=== PATIENT | female | born 1940 | race Two or more races ===

== ENCOUNTER → 2018-09-19 | Outpatient (CLI) | payer MEDICARE, MEDICAID ==
[~2018-09-19] MED LIST: ALBUPOW26; AMLO10TA12; LISI-713; SIMV40TA96; [UNRECOGNIZED DRUG - OTHER]
[2018-09-19 12:01] LABS: Urine WBC None Seen /hpf (0 - 5)
[2018-09-19 12:19] LABS: Basophils # (auto) 0 uL; Basophils % (auto) 0.5 % (0.0-2.0); Eosinophils # (auto) 0 uL; Eosinophils % (auto) 0.6 % (0.0-7.0); Hematocrit 42.2 % (36.0-46.0); Hemoglobin 13.9 g/dL (12.2-16.2); Lymphocytes # (auto) 1.4 uL; Lymphocytes % (auto) 22.5 % (10.0-50.0); Mean Corpuscular Hemoglobin 27.5 pg (28.0-32.0); Mean Corpuscular Volume 83.4 fL (80.0-100.0); Monocytes # (auto) 0.5 uL; Monocytes % (auto) 8.5 % (0.0-12.0); Neutrophils # (auto) 4.2 uL; Neutrophils % (auto) 67.9 % (37.0-80.0); Platelet Count (auto) 332 10^3/uL (140-450); Red Blood Cells 5.06 10^6/uL (4.0-5.20); Red Cell Distribution Width 13.1 % (11.8-14.3); White Blood Cell 6.2 10^3/uL (4.4-10.8)
[2018-09-19 12:23] LABS: Urine Bacteria NONE SEEN /hpf (None Seen); Urine Blood Negative /uL (Negative); Urine Specific Gravity 1.007 (1.001-1.035)
[2018-09-19 12:34] LABS: INR 0.96 (0.9-1.15); Partial Thromboplastin Time 26.1 sec (23.78-33.04); Prothrombin Time 10.3 sec (9.27-12.13)
[2018-09-19 13:09] LABS: Albumin 3.7 g/dL (3.4-5.0); Calcium 8.9 mg/dL (8.5-10.1); Potassium 3.6 mmol/L (3.5-5.1)
[2018-09-19 13:12] LABS: BUN/Creatinine Ratio 26.8; Bilirubin, Total 0.4 mg/dL (0.2-1.0); Total Protein 7.4 g/dL (6.4-8.2)
== END | disposition home or self-care (01) ==
LOC: LAB 10:58
PROVIDERS: ATTEND Orthopaedic Surgery
DX: M75.121 Complete rotator cuff tear or rupture of right shoulder, not specified as traumatic (principal); M75.41 Impingement syndrome of right shoulder; M75.21 Bicipital tendinitis, right shoulder; M80.021A Age-related osteoporosis with current pathological fracture, right humerus, initial encounter for fracture; Z79.01 Long term (current) use of anticoagulants; Z79.899 Other long term (current) drug therapy
CPT/HCPCS: 36415; 80053; 81001; 83036; 85025; 85610; 85730

== ENCOUNTER 2021-06-09 16:51 | Emergency (ER) | payer MEDICARE, MEDICAID ==
[~2021-06-09] VITALS: Ht 152.4 cm; Wt 75.3 kg
[~2021-06-09 16:51] MED LIST changes: +AMLO-496; -AMLO10TA12; +SIMV40TA2; -SIMV40TA96
[2021-06-09 17:02] VITALS: BP 149/74
[2021-06-09 18:38] LABS: Basophils # (auto) 0 10 ^3/uL (0-0.2); Basophils % (auto) 0.4 % (0.0-2.0); Eosinophils # (auto) 0.1 10 ^3/uL (0-0.8); Eosinophils % (auto) 1.2 % (0.0-7.0); Hematocrit 37.3 % (36.0-46.0); Hemoglobin 12.1 g/dL (12.2-16.2); Lymphocytes # (auto) 1.6 10 ^3/uL (0.4-5.4); Lymphocytes % (auto) 22.4 % (10.0-50.0); Mean Corpuscular Hemoglobin 25.5 pg (28.0-32.0); Mean Corpuscular Hgb Conc. 32.3 g/dL (32.0-36.0); Mean Corpuscular Volume 78.8 fL (80.0-100.0); Monocytes # (auto) 0.7 10 ^3/uL (0-1.3); Monocytes % (auto) 9.4 % (0.0-12.0); Neutrophils # (auto) 4.8 10 ^3/uL (1.6-8.6); Neutrophils % (auto) 66.6 % (37.0-80.0); Red Blood Cells 4.74 10^6/uL (4.0-5.20); Red Cell Distribution Width 16.2 % (11.8-14.3); White Blood Cell 7.2 10^3/uL (4.4-10.8)
[2021-06-09 18:52] LABS: Alanine Aminotransferase 17 U/L (13-56); Albumin 3.7 g/dL (3.4-5.0); Anion Gap 8 (5-15); Aspartate Aminotransferase 12 U/L (15-37); BUN/Creatinine Ratio 33.9; Blood Urea Nitrogen 21 mg/dL (7-18); Calcium 8.7 mg/dL (8.5-10.1); Carbon Dioxide 24 mmol/L (21-32); Chloride 105 mmol/L (98-107); GFR African American 119 mL/min; GFR Non-African American 99 mL/min; Glucose 97 mg/dL (74-106); Potassium 4.3 mmol/L (3.5-5.1); Sodium 137 mmol/L (136-145)
[2021-06-09 18:57] LABS: Alkaline Phosphatase 139 U/L (45-117); Bilirubin, Total 0.4 mg/dL (0.2-1.0)
== END 2021-06-09 18:40 | disposition left against medical advice (07) ==
LOC: ER 16:51
DX: R07.9 Chest pain, unspecified (principal); Z53.21 Procedure and treatment not carried out due to patient leaving prior to being seen by health care provider
CPT/HCPCS: 36415; 71045; 80053; 84484; 85025; 93005

== ENCOUNTER 2022-12-10 01:02 | Inpatient (IN) | payer MEDICARE, MEDICAID ==
[~2022-12-10] VITALS: Ht 165.1 cm; Wt 76.4 kg
[2022-12-10] MEDS ORDERED: methylPREDNISolone SOD SUCC 125 MG/2 ML VL ONE (01:05)
[2022-12-10] MEDS ORDERED: FUROSEMIDE 40 MG/4 ML VIAL ONE (01:05)
[2022-12-10] MEDS ORDERED: ALBUTEROL SULF 2.5 MG/0.5ML(0.5%) NEB SOLN NEB ONE (01:15)
[2022-12-10] MEDS ORDERED: methylPREDNISolone SOD SUCC 125 MG/2 ML VL IV ONE (01:15)
[2022-12-10] MEDS ORDERED: methylPREDNISolone SOD SUCC 125 MG/2 ML VL IM ONE (01:15)
[2022-12-10] MEDS ORDERED: FUROSEMIDE 40 MG/4 ML VIAL IV ONE (01:15)
[2022-12-10] MEDS ORDERED: IPRATROPIUM BROM 0.5 MG/2.5ML INH SOL NEB ONE (01:15)
[2022-12-10] MEDS ORDERED: ALBUTEROL MEDNEB 2.5 mg/3ml NEB ONE ×3 (01:26→14:06)
[2022-12-10 01:57] LABS: Basophils # (auto) 0 10 ^3/uL (0-0.2); Basophils % (auto) 0.6 % (0.0-2.0); Eosinophils # (auto) 0.2 10 ^3/uL (0-0.8); Eosinophils % (auto) 2.5 % (0.0-7.0); Hematocrit 33.7 % (36.0-46.0); Lymphocytes # (auto) 2.9 10 ^3/uL (0.4-5.4); Lymphocytes % (auto) 34.3 % (10.0-50.0); Mean Corpuscular Hemoglobin 28.3 pg (28.0-32.0); Mean Corpuscular Hgb Conc. 32.6 g/dL (32.0-36.0); Mean Corpuscular Volume 86.8 fL (80.0-100.0); Monocytes # (auto) 0.8 10 ^3/uL (0-1.3); Monocytes % (auto) 9.3 % (0.0-12.0); Neutrophils # (auto) 4.5 10 ^3/uL (1.6-8.6); Neutrophils % (auto) 53.3 % (37.0-80.0); Nucleated Red Blood Cells % 0.2 %; Red Blood Cells 3.89 10^6/uL (4.0-5.20); Red Cell Distribution Width 15.5 % (11.8-14.3); White Blood Cell 8.3 10^3/uL (4.4-10.8)
[2022-12-10 02:10] LABS: Albumin 3.5 g/dL (3.4-5.0); Calcium 8.8 mg/dL (8.5-10.1); Potassium 4.3 mmol/L (3.5-5.1)
[2022-12-10 02:11] LABS: BUN/Creatinine Ratio 21.2
[2022-12-10 02:13] LABS: Partial Thromboplastin Time 23.1 sec (24.6-33.4)
[2022-12-10 02:14] LABS: Bilirubin, Total 0.3 mg/dL (0.2-1.0); Total Protein 7.2 g/dL (6.4-8.2)
[2022-12-10 04:18] VITALS: BP 118/37
[2022-12-10] MEDS ORDERED: ACETAMINOPHEN 325 MG TAB PO PRN (09:45)
[2022-12-10] MEDS ORDERED: PANTOPRAZOLE 40 MG/10 ML VIAL INJ IV ONE (09:45)
[2022-12-10] MEDS ORDERED: DEXTROSE (50%) 50ML SYRG IV PRN (10:00)
[2022-12-10] MEDS ORDERED: IPRATROPIUM BROM 0.5 MG/2.5ML INH SOL NEB SCH (10:00)
[2022-12-10] MEDS: FUROSEMIDE 20 MG/2 ML VIAL IV SCH (10:00)
[2022-12-10] MEDS ORDERED: ALBUTEROL SULF 2.5 MG/0.5ML(0.5%) NEB SOLN NEB SCH (10:00)
[2022-12-10 10:14] LABS: Cholesterol 169 mg/dL (< 200); Triglycerides 123 mg/dL (< 150)
[2022-12-10 10:16] LABS: HDL Cholesterol 79 mg/dL (40-59); LDL Cholesterol 78 mg/dL (< 100)
[2022-12-10] MEDS: ENOXAPARIN SOD 40 MG/0.4 ML SYRINGE SC SCH (11:22)
[2022-12-10] MEDS: methylPREDNISolone SOD SUCC 125 MG/2 ML VL IV SCH ×2 (11:26→22:52)
[2022-12-10] MEDS: PANTOPRAZOLE 40 MG/10 ML VIAL INJ IV SCH (11:28)
[2022-12-10] MEDS: InsuLIN REG 1unit/0.01ml Soln (100units/ml) SC SCH ×3 (11:30→22:53)
[2022-12-10] MEDS: IPRATROPIUM BROM 0.5 MG/2.5ML INH SOL NEB SCH (18:14)
[2022-12-10] MEDS: ALBUTEROL SULF 2.5 MG/0.5ML(0.5%) NEB SOLN NEB SCH (18:14)
[2022-12-10] MEDS: ACCU-CHEK COMFORT CURVE STRIP VI SCH ×3 (19:17→22:00)
[2022-12-10] MEDS ORDERED: LORazepam 2MG/ML-1ML VIAL ONE (23:26)
[2022-12-10 23:29] VITALS: BP 141/69
[2022-12-10] MEDS ORDERED: methylPREDNISolone SOD SUCC 40 MG/ML VL ONE (23:29)
[2022-12-11] VITALS (7 sets, daily range): BP systolic 113–145; BP diastolic 45–68
[2022-12-11] MEDS ORDERED: dilTIAZem 25 MG/5 ML VIAL IV ONE
[2022-12-11] MEDS: IPRATROPIUM BROM 0.5 MG/2.5ML INH SOL NEB SCH ×4 (00:01→19:13)
[2022-12-11] MEDS: ALBUTEROL SULF 2.5 MG/0.5ML(0.5%) NEB SOLN NEB SCH ×3 (00:01→12:41)
[2022-12-11] MEDS ORDERED: dilTIAZem HCL 50 MG/10 ML VIAL IV ONE (00:06)
[2022-12-11] MEDS ORDERED: LORazepam 2MG/ML-1ML VIAL IV PRN (00:30)
[2022-12-11] MEDS ORDERED: LORazepam 2MG/ML-1ML VIAL IM ONE (00:30)
[2022-12-11] MEDS ORDERED: methylPREDNISolone SOD SUCC 40 MG/ML VL IV ONE (00:30)
[2022-12-11] MEDS: InsuLIN REG 1unit/0.01ml Soln (100units/ml) SC SCH ×4 (06:37→22:11)
[2022-12-11] MEDS: ACCU-CHEK COMFORT CURVE STRIP VI SCH ×4 (06:38→22:08)
[2022-12-11] MEDS: CARVEDILOL 12.5 MG TAB PO SCH ×3 (09:08→22:08)
[2022-12-11] MEDS: methylPREDNISolone SOD SUCC 125 MG/2 ML VL IV SCH ×2 (09:33→14:06)
[2022-12-11] MEDS: FUROSEMIDE 20 MG/2 ML VIAL IV SCH (09:33)
[2022-12-11] MEDS: PANTOPRAZOLE 40 MG/10 ML VIAL INJ IV SCH (09:33)
[2022-12-11] MEDS: ENOXAPARIN SOD 40 MG/0.4 ML SYRINGE SC SCH (09:35)
[2022-12-11 10:32] LABS: Hematocrit 29.6 % (36.0-46.0); Hemoglobin 9.9 g/dL (12.2-16.2); Mean Corpuscular Hemoglobin 28.5 pg (28.0-32.0); Mean Corpuscular Hgb Conc. 33.3 g/dL (32.0-36.0); Mean Corpuscular Volume 85.5 fL (80.0-100.0); Red Blood Cells 3.46 10^6/uL (4.0-5.20); Red Cell Distribution Width 15.5 % (11.8-14.3); White Blood Cell 10.6 10^3/uL (4.4-10.8)
[2022-12-11 10:36] LABS: Band Neutrophils % (manual) 0; Basophils % (manual) 0 (0.0-2.0); Blast Cells 0; Eosinophils % (manual) 0 (0-7); Metamyelocytes % 0; Myelocytes % 0; Promyelocytes % 0; Reactive Lymphocytes 0
[2022-12-11] MEDS ORDERED: FURO40TA4 PO (10:47)
[2022-12-11] MEDS ORDERED: ALBUAER3 IN (10:48)
[2022-12-11] MEDS ORDERED: IRBE300T43 PO (10:49)
[2022-12-11 10:50] LABS: Albumin 3.4 g/dL (3.4-5.0); BUN/Creatinine Ratio 31.7; Calcium 8.7 mg/dL (8.5-10.1); Potassium 4.6 mmol/L (3.5-5.1)
[2022-12-11] MEDS ORDERED: METF-370 PO (10:50)
[2022-12-11] MEDS ORDERED: FESO4TAB PO (10:50)
[2022-12-11] MEDS ORDERED: NEBI10TA2 PO (10:51)
[2022-12-11] MEDS ORDERED: ASPI325T4 PO (10:53)
[2022-12-11 10:54] LABS: Bilirubin, Total 0.3 mg/dL (0.2-1.0); Total Protein 6.3 g/dL (6.4-8.2)
[2022-12-11] MEDS ORDERED: ACET-1156 PO (10:55)
[2022-12-11 11:28] LABS: Lymphocytes % (manual) 5 (10.0-50.0); Monocytes % (manual) 4 (0-12)
[2022-12-11] MEDS ORDERED: LOSARTAN POTASSIUM 25 MG TAB PO ONE (16:15)
[2022-12-11] MEDS ORDERED: FUROSEMIDE 40 MG/4 ML VIAL IV ONE (16:15)
[2022-12-11] MEDS: FUROSEMIDE 40 MG/4 ML VIAL IV SCH (17:05)
[2022-12-11] MEDS: ALBUTEROL SULF 2.5 MG/0.5ML(0.5%) NEB SOLN NEB PRN (19:13)
[2022-12-11] MEDS ORDERED: ALBUTEROL SULF 2.5 MG/0.5ML(0.5%) NEB SOLN ONE (23:58)
[2022-12-12] MEDS: ALBUTEROL SULF 2.5 MG/0.5ML(0.5%) NEB SOLN NEB PRN ×2 (00:18→18:55)
[2022-12-12] MEDS: IPRATROPIUM BROM 0.5 MG/2.5ML INH SOL NEB SCH ×4 (00:18→18:55)
[2022-12-12 05:00] VITALS: BP 132/48
[2022-12-12 06:24] LABS: Basophils # (auto) 0 10 ^3/uL (0-0.2); Eosinophils # (auto) 0 10 ^3/uL (0-0.8); Hematocrit 26.5 % (36.0-46.0); Lymphocytes # (auto) 0.6 10 ^3/uL (0.4-5.4); Lymphocytes % (auto) 7.4 % (10.0-50.0); Mean Corpuscular Hgb Conc. 33.9 g/dL (32.0-36.0); Mean Corpuscular Volume 85.6 fL (80.0-100.0); Monocytes # (auto) 0.4 10 ^3/uL (0-1.3); Monocytes % (auto) 4.5 % (0.0-12.0); Neutrophils # (auto) 7.5 10 ^3/uL (1.6-8.6); Neutrophils % (auto) 88.1 % (37.0-80.0); Nucleated Red Blood Cells % 0.1 %; Red Blood Cells 3.09 10^6/uL (4.0-5.20); White Blood Cell 8.5 10^3/uL (4.4-10.8)
[2022-12-12] MEDS: ACCU-CHEK COMFORT CURVE STRIP VI SCH ×4 (06:36→21:33)
[2022-12-12] MEDS: InsuLIN REG 1unit/0.01ml Soln (100units/ml) SC SCH ×4 (06:38→21:33)
[2022-12-12 07:09] LABS: Albumin 3.2 g/dL (3.4-5.0); BUN/Creatinine Ratio 49.5; Bilirubin, Total 0.3 mg/dL (0.2-1.0); Calcium 8.5 mg/dL (8.5-10.1); Potassium 4.5 mmol/L (3.5-5.1); Total Protein 6.2 g/dL (6.4-8.2)
[2022-12-12 09:00] VITALS: BP 140/68
[2022-12-12] MEDS: FUROSEMIDE 40 MG/4 ML VIAL IV SCH (11:00)
[2022-12-12] MEDS: PANTOPRAZOLE 40 MG/10 ML VIAL INJ IV SCH (11:00)
[2022-12-12] MEDS: LOSARTAN POTASSIUM 25 MG TAB PO SCH (11:01)
[2022-12-12] MEDS: ENOXAPARIN SOD 40 MG/0.4 ML SYRINGE SC SCH (11:01)
[2022-12-12] MEDS: CARVEDILOL 12.5 MG TAB PO SCH ×2 (11:01→21:30)
[2022-12-12] MEDS ORDERED: SENNA 8.6 MG TAB PO PRN (11:45)
[2022-12-12] MEDS ORDERED: POLYETHYLENE GLYCOL 17 GM PWDR PO PRN (11:45)
[2022-12-12 13:00] VITALS: BP 124/53
[2022-12-12 17:00] VITALS: BP 119/47
[2022-12-12] MEDS ORDERED: ALBUTEROL SULF 2.5 MG/0.5ML(0.5%) NEB SOLN ONE ×2 (18:06→23:30)
[2022-12-12] MEDS: SENNA 8.6 MG TAB PO SCH (21:30)
[2022-12-12 22:00] VITALS: BP 116/59
[2022-12-13] VITALS (8 sets, daily range): BP systolic 113–138; BP diastolic 51–77
[2022-12-13] MEDS: IPRATROPIUM BROM 0.5 MG/2.5ML INH SOL NEB SCH ×5 (04:51→23:29)
[2022-12-13] MEDS: ALBUTEROL SULF 2.5 MG/0.5ML(0.5%) NEB SOLN NEB PRN ×4 (04:52→23:29)
[2022-12-13] MEDS: InsuLIN REG 1unit/0.01ml Soln (100units/ml) SC SCH ×4 (07:00→22:00)
[2022-12-13] MEDS: ACCU-CHEK COMFORT CURVE STRIP VI SCH ×4 (08:03→22:00)
[2022-12-13] MEDS: PANTOPRAZOLE 40 MG/10 ML VIAL INJ IV SCH (09:25)
[2022-12-13] MEDS: CARVEDILOL 12.5 MG TAB PO SCH ×2 (09:28→23:04)
[2022-12-13] MEDS: LOSARTAN POTASSIUM 25 MG TAB PO SCH (09:28)
[2022-12-13] MEDS: FUROSEMIDE 40 MG/4 ML VIAL IV SCH (09:29)
[2022-12-13] MEDS ORDERED: IOHEXOL 350 MG/ML 100ML IJ ONE (09:59)
[2022-12-13] MEDS: POLYETHYLENE GLYCOL 17 GM PWDR PO SCH (10:00)
[2022-12-13] MEDS: ENOXAPARIN SOD 40 MG/0.4 ML SYRINGE SC SCH (10:00)
[2022-12-13] MEDS ORDERED: REGADENOSON 0.4 MG/5 ML SYRG IV ONE ×2 (10:55→11:00)
[2022-12-13 22:32] LABS: Basophils # (auto) 0 10 ^3/uL (0-0.2); Basophils % (auto) 0.4 % (0.0-2.0); Eosinophils # (auto) 0.1 10 ^3/uL (0-0.8); Eosinophils % (auto) 1.4 % (0.0-7.0); Hematocrit 29.4 % (36.0-46.0); Hemoglobin 9.8 g/dL (12.2-16.2); Lymphocytes # (auto) 1.4 10 ^3/uL (0.4-5.4); Lymphocytes % (auto) 15.2 % (10.0-50.0); Mean Corpuscular Hemoglobin 28.4 pg (28.0-32.0); Mean Corpuscular Hgb Conc. 33.3 g/dL (32.0-36.0); Mean Corpuscular Volume 85.2 fL (80.0-100.0); Monocytes # (auto) 1.1 10 ^3/uL (0-1.3); Monocytes % (auto) 11.5 % (0.0-12.0); Neutrophils # (auto) 6.8 10 ^3/uL (1.6-8.6); Neutrophils % (auto) 71.5 % (37.0-80.0); Red Blood Cells 3.45 10^6/uL (4.0-5.20); Red Cell Distribution Width 15.1 % (11.8-14.3); White Blood Cell 9.5 10^3/uL (4.4-10.8)
[2022-12-13 22:52] LABS: Albumin 2.9 g/dL (3.4-5.0); BUN/Creatinine Ratio 54.3; Calcium 8.3 mg/dL (8.5-10.1); Potassium 4.3 mmol/L (3.5-5.1)
[2022-12-13 22:54] LABS: Bilirubin, Total 0.2 mg/dL (0.2-1.0); Total Protein 6.1 g/dL (6.4-8.2)
[2022-12-13] MEDS: SENNA 8.6 MG TAB PO SCH (23:04)
[2022-12-13] MEDS ORDERED: ALBUTEROL SULF 2.5 MG/0.5ML(0.5%) NEB SOLN ONE (23:26)
[2022-12-14 05:00] VITALS: BP 124/63
[2022-12-14] MEDS: ACCU-CHEK COMFORT CURVE STRIP VI SCH ×4 (06:20→21:32)
[2022-12-14] MEDS: InsuLIN REG 1unit/0.01ml Soln (100units/ml) SC SCH ×4 (06:20→21:32)
[2022-12-14] MEDS: IPRATROPIUM BROM 0.5 MG/2.5ML INH SOL NEB SCH ×3 (07:16→18:54)
[2022-12-14 08:49] VITALS: BP 159/48
[2022-12-14] MEDS: POLYETHYLENE GLYCOL 17 GM PWDR PO SCH (09:15)
[2022-12-14] MEDS: PANTOPRAZOLE 40 MG/10 ML VIAL INJ IV SCH (09:15)
[2022-12-14] MEDS: ENOXAPARIN SOD 40 MG/0.4 ML SYRINGE SC SCH (09:15)
[2022-12-14] MEDS: LOSARTAN POTASSIUM 25 MG TAB PO SCH (09:16)
[2022-12-14] MEDS: CARVEDILOL 12.5 MG TAB PO SCH ×2 (09:17→21:37)
[2022-12-14] MEDS: FUROSEMIDE 40 MG/4 ML VIAL IV SCH (09:17)
[2022-12-14 11:33] LABS: Urine Bacteria NONE SEEN /hpf (None Seen); Urine Blood Negative /uL (Negative); Urine Specific Gravity 1.009 (1.001-1.035); Urine WBC 2 /hpf (0 - 5)
[2022-12-14 13:00] VITALS: BP 127/58
[2022-12-14] MEDS ORDERED: DICL1GEL72 EX (14:14)
[2022-12-14 17:00] VITALS: BP 129/54
[2022-12-14] MEDS ORDERED: ALBUTEROL SULF 2.5 MG/0.5ML(0.5%) NEB SOLN ONE (18:10)
[2022-12-14] MEDS: SENNA 8.6 MG TAB PO SCH (21:37)
[2022-12-14 22:00] VITALS: BP 126/35
[2022-12-15] MEDS ORDERED: ALBUTEROL SULF 2.5 MG/0.5ML(0.5%) NEB SOLN ONE ×2 (00:04→18:14)
[2022-12-15] MEDS: IPRATROPIUM BROM 0.5 MG/2.5ML INH SOL NEB SCH ×2 (00:20→06:54)
[2022-12-15 05:00] VITALS: BP 135/90
[2022-12-15] MEDS: InsuLIN REG 1unit/0.01ml Soln (100units/ml) SC SCH ×4 (06:33→21:25)
[2022-12-15] MEDS: ACCU-CHEK COMFORT CURVE STRIP VI SCH ×4 (06:33→21:27)
[2022-12-15] MEDS: EMPAGLIFLOZIN 10 MG TAB PO SCH ×2 (06:41→06:54)
[2022-12-15 06:54] LABS: Basophils # (auto) 0 10 ^3/uL (0-0.2); Basophils % (auto) 0.3 % (0.0-2.0); Eosinophils # (auto) 0.3 10 ^3/uL (0-0.8); Eosinophils % (auto) 4.9 % (0.0-7.0); Hemoglobin 9.5 g/dL (12.2-16.2); Lymphocytes # (auto) 1.8 10 ^3/uL (0.4-5.4); Lymphocytes % (auto) 28.9 % (10.0-50.0); Mean Corpuscular Hemoglobin 27.8 pg (28.0-32.0); Mean Corpuscular Hgb Conc. 32.9 g/dL (32.0-36.0); Mean Corpuscular Volume 84.5 fL (80.0-100.0); Monocytes # (auto) 0.7 10 ^3/uL (0-1.3); Neutrophils # (auto) 3.3 10 ^3/uL (1.6-8.6); Neutrophils % (auto) 53.9 % (37.0-80.0); Red Blood Cells 3.43 10^6/uL (4.0-5.20); White Blood Cell 6.2 10^3/uL (4.4-10.8)
[2022-12-15] MEDS: ALBUTEROL SULF 2.5 MG/0.5ML(0.5%) NEB SOLN NEB PRN ×2 (06:54→19:24)
[2022-12-15 07:00] LABS: Albumin 2.8 g/dL (3.4-5.0); Calcium 8.5 mg/dL (8.5-10.1)
[2022-12-15 07:09] LABS: BUN/Creatinine Ratio 47.8; Bilirubin, Total 0.2 mg/dL (0.2-1.0)
[2022-12-15 09:00] VITALS: BP_SYST 127; BP_SYST 135; BP_DIAS 45; BP_DIAS 54
[2022-12-15] MEDS: POLYETHYLENE GLYCOL 17 GM PWDR PO SCH (09:11)
[2022-12-15] MEDS: ENOXAPARIN SOD 40 MG/0.4 ML SYRINGE SC SCH (09:11)
[2022-12-15] MEDS: LOSARTAN POTASSIUM 25 MG TAB PO SCH (09:12)
[2022-12-15] MEDS: CARVEDILOL 12.5 MG TAB PO SCH ×2 (09:12→21:30)
[2022-12-15] MEDS: FUROSEMIDE 40 MG/4 ML VIAL IV SCH (09:13)
[2022-12-15] MEDS ORDERED: FURO1TAB31 PO (14:18)
[2022-12-15] MEDS ORDERED: EMPA1TAB PO (14:18)
[2022-12-15 16:25] VITALS: BP 127/45
[2022-12-15] MEDS: SENNA 8.6 MG TAB PO SCH (21:29)
[2022-12-15 22:00] VITALS: BP 122/60
[2022-12-16] MEDS: IPRATROPIUM BROM 0.5 MG/2.5ML INH SOL NEB SCH ×3 (00:58→07:03)
[2022-12-16 03:08] VITALS: BP 122/60
[2022-12-16 05:00] VITALS: BP 149/49
[2022-12-16] MEDS: InsuLIN REG 1unit/0.01ml Soln (100units/ml) SC SCH (06:04)
[2022-12-16] MEDS: ACCU-CHEK COMFORT CURVE STRIP VI SCH (06:05)
[2022-12-16] MEDS: EMPAGLIFLOZIN 10 MG TAB PO SCH (06:42)
[2022-12-16] MEDS: ALBUTEROL SULF 2.5 MG/0.5ML(0.5%) NEB SOLN NEB PRN (07:03)
[2022-12-16 09:00] VITALS: BP 154/58
[2022-12-16] MEDS: POLYETHYLENE GLYCOL 17 GM PWDR PO SCH (10:42)
[2022-12-16] MEDS: LOSARTAN POTASSIUM 25 MG TAB PO SCH (10:42)
[2022-12-16] MEDS: FUROSEMIDE 40 MG/4 ML VIAL IV SCH (10:42)
[2022-12-16] MEDS: ENOXAPARIN SOD 40 MG/0.4 ML SYRINGE SC SCH (10:42)
== END 2022-12-16 10:20 | disposition home or self-care (01) | DRG 133 ==
LOC: EDBD 01:02 → ER 01:02 → EDSEX 01:02 → OVERFLOW 09:44 → CENTRAL 22:44 → OVERFLOW 12-11 01:24 → WEST WING 12-11 02:29 → TELE-WESTW 12-11 04:35
PROVIDERS: ADMIT Nurse Practitioner Family; ATTEND Internal Medicine
PROC: 5A09357 Assistance with Respiratory Ventilation, Less than 24 Consecutive Hours, Continuous Positive Airway Pressure (ICD-10-PCS; principal; 2022-12-10)
PROC: 5A09357 Assistance with Respiratory Ventilation, Less than 24 Consecutive Hours, Continuous Positive Airway Pressure (ICD-10-PCS; 2022-12-11)
PROC: 5A09357 Assistance with Respiratory Ventilation, Less than 24 Consecutive Hours, Continuous Positive Airway Pressure (ICD-10-PCS; 2022-12-12)
DX: J96.21 Acute and chronic respiratory failure with hypoxia (principal); I50.43 Acute on chronic combined systolic (congestive) and diastolic (congestive) heart failure; N17.9 Acute kidney failure, unspecified; E87.1 Hypo-osmolality and hyponatremia; D64.9 Anemia, unspecified; E11.22 Type 2 diabetes mellitus with diabetic chronic kidney disease; E66.01 Morbid (severe) obesity due to excess calories; E78.5 Hyperlipidemia, unspecified; R79.89 Other specified abnormal findings of blood chemistry; I13.0 Hypertensive heart and chronic kidney disease with heart failure and stage 1 through stage 4 chronic kidney disease, or unspecified chronic kidney disease; N18.9 Chronic kidney disease, unspecified; I25.10 Atherosclerotic heart disease of native coronary artery without angina pectoris; K21.9 Gastro-esophageal reflux disease without esophagitis; Z68.27 Body mass index [BMI] 27.0-27.9, adult; J96.22 Acute and chronic respiratory failure with hypercapnia; K59.00 Constipation, unspecified; M17.0 Bilateral primary osteoarthritis of knee; Z20.822 Contact with and (suspected) exposure to COVID-19; Z79.899 Other long term (current) drug therapy; Z95.1 Presence of aortocoronary bypass graft
CPT/HCPCS: 36415; 36600; 71045; 71275; 78452; 80053; 80061; 81001; 82805; 82962; 83036; 83880; 84443; 84484; 85007; 85025; 85027; 85379; 85610; 85730; 87426; 93005; 93017; 93306; 94640; 94660; 96372; 96374; 96375; 96376; 97110; 97116; 97163; 97530; 99291; C9113; G0378; J1815